=== PATIENT | female | born 1955 | race Two or more races ===

== ENCOUNTER 2019-05-14 10:29 | Inpatient (IN) | payer OTHER ==
[~2019-05-14] VITALS: Ht 160 cm; Wt 69.9 kg
[2019-06-18] MEDS ORDERED: TOPROL XL50 M1 PO (11:52)
[2019-06-18] MEDS ORDERED: [UNRECOGNIZED DRUG - OTHER] (11:53)
[2019-06-18] MEDS ORDERED: ZOCOR20 MG PO (11:53)
[2019-06-18] MEDS ORDERED: PROAIR HFA8.5 GM IH (11:54)
[2019-06-18] MEDS ORDERED: PREVACID15 MG PO (11:54)
[2019-06-24] MEDS ORDERED: SYMBICORT 16010.2 GM (09:18)
[2019-06-27] MEDS ORDERED: LEVSIN/SL0.125 MG SL (15:18)
[2019-06-27] MEDS ORDERED: SIMETHICONE80 MG PO (15:18)
[2019-06-27] MEDS ORDERED: ULTRACET PO (15:18)
== END 2019-06-27 15:24 | disposition home or self-care (01) | DRG 331 ==
LOC: EDUNIT# 06-17 11:15 → O/R 06-24 06:00 → SURH 06-24 06:00 → SURG 06-24 11:15 → SURH 06-24 15:38
PROVIDERS: Surgery; ADMIT Obstetrics & Gynecology Gynecology
PROC: 0UT7FZZ Resection of Bilateral Fallopian Tubes, Via Natural or Artificial Opening With Percutaneous Endoscopic Assistance (ICD-10-PCS; 2019-06-24)
PROC: 0UT2FZZ Resection of Bilateral Ovaries, Via Natural or Artificial Opening With Percutaneous Endoscopic Assistance (ICD-10-PCS; 2019-06-24)
PROC: 3E0F7GC Introduction of Other Therapeutic Substance into Respiratory Tract, Via Natural or Artificial Opening (ICD-10-PCS; 2019-06-24)
PROC: 0DTF4ZZ Resection of Right Large Intestine, Percutaneous Endoscopic Approach (ICD-10-PCS; principal; 2019-06-24 11:15)
PROC: 0UT9FZZ Resection of Uterus, Via Natural or Artificial Opening With Percutaneous Endoscopic Assistance (ICD-10-PCS; 2019-06-24 11:15)
DX: D12.2 Benign neoplasm of ascending colon (principal); D25.1 Intramural leiomyoma of uterus; N83.292 Other ovarian cyst, left side; N83.291 Other ovarian cyst, right side; N83.8 Other noninflammatory disorders of ovary, fallopian tube and broad ligament; I11.9 Hypertensive heart disease without heart failure; J45.20 Mild intermittent asthma, uncomplicated; N72 Inflammatory disease of cervix uteri

== ENCOUNTER → 2019-05-14 11:32 | Outpatient (CLI) | payer OTHER | END | disposition home or self-care (01) | LOC: LAB 11:32 | DX: N20.0 Calculus of kidney (principal) ==

== ENCOUNTER → 2019-05-17 | Outpatient (CLI) | payer OTHER | END | disposition home or self-care (01) | LOC: TOM 08:33 | DX: C18.2 Malignant neoplasm of ascending colon (principal); K59.09 Other constipation | CPT/HCPCS: 74176; Q9965 ==

== ENCOUNTER 2020-08-13 10:00 | Day surgery (SDC) | payer OTHER ==
[~2020-08-13 10:00] MED LIST: LEVSIN/SL0.125 MG SL; PREVACID15 MG PO; PROAIR HFA8.5 GM IH; SIMETHICONE80 MG PO; SYMBICORT 16010.2 GM; TOPROL XL50 M1 PO; ULTRACET PO; ZOCOR20 MG PO; [UNRECOGNIZED DRUG - OTHER]
== END 2020-08-13 14:40 | disposition home or self-care (01) ==
LOC: AMB-ENDOS 10:00
PROVIDERS: ATTEND Surgery
DX: K62.89 Other specified diseases of anus and rectum (principal); Z20.822 Contact with and (suspected) exposure to COVID-19